=== PATIENT | female | born 1935 | race Caucasian/White ===

== ENCOUNTER 2016-06-10 17:22 | Inpatient (IN) | payer MEDICARE ==
[2016-06-10] MEDS ORDERED: NITROGLYCERIN 0.4 MG/TAB 25 TAB/BOTTLE SL PRN (19:11)
--- NOTE | 2016-06-10 19:11 | PDOC H&P ---
History of Present Illness Admission Date/PCP: 06/10/16 17:22 [facility] [place] Patient complains of: Cough, Fatigue, Fall History of Present Illness: SANCHO GARDUNO is a 81 year old female who presented to my office earlier today with reported worsening fatigue, coughing and more confused in the last couple of days. Caregiver reported episode of fall at home. There is reported productive cough, with description of sputum as green yellow, fever and chills. There is associated shortness of breath, wheezing, urinary frequency and incontinence. There is associated poor appetite and oral intake. No significant abdominal pain or diarrhea. Caregiver reported recent change in patient's pain management medication by specialist from Morphine sulfate to Williams. Patient's vitals in the office was reported temperature at 103.1F oxygen saturation was between 85 and 91% on room air at rest. Past Medical History Cardiac Medical History: Reports: Atrial Fibrillation, Hypertension Pulmonary Medical History: Reports: Chronic Obstructive Pulmonary Disease (COPD) , Pneumonia, Tuberculosis Endocrine Medical History: Reports: Diabetes Mellitus Type 2 Psychiatric Medical History: Reports: Dementia - From Parkinson's Denies: Depression Past Surgical History Past Surgical History: Reports: Section, Cholecystectomy, Hysterectomy , Orthopedic Surgery - Bilateral hip replacements, Tonsillectomy Social History Smoking Status: Never Smoker Frequency of Alcohol Use: None Hx Recreational Drug Use: No Hx Prescription Drug Abuse: No - Advance Directive Resuscitation Status: Full Code Family History Family History: Reviewed & Not Pertinent Parental Family History Reviewed: Yes Children Family History Reviewed: Yes Sibling(s) Family History Reviewed.: Yes Medication/Allergy Home Medications: Albuterol Sulfate [Proair HFA] 1 puff IH TIDP PRN 06/10/16 Carbidopa/Levodopa [Sinemet 25-100 mg Tablet] 1 each PO Q12 06/10/16 Furosemide [Lasix 20 mg Tablet] 20 mg PO DAILY 06/10/16 Gabapentin [Neurontin] 800 mg PO Q6 06/10/16 Glimepiride 0.5 mg PO DAILY 06/10/16 Hydrocodone/Acetaminophen [Williams 10-325 mg Tablet] 1 tab PO PRN PRN 06/10/16 Lamotrigine [Lamictal] 100 mg PO Q12 06/10/16 Levothyroxine Sodium [Synthroid 0.075 mg Tablet] 0.075 mg PO DAILY 06/10/16 Loratadine [Claritin 10 mg Tablet] 10 mg PO DAILY 06/10/16 Metoprolol Tartrate [Lopressor 25 mg Tablet] 12.5 mg PO Q12 06/10/16 Nitroglycerin [Nitrostat] 0.4 mg SL Q5MP PRN 06/10/16 Allergies/Adverse Reactions: codeine Allergy (Verified 04/14/16 20:11) digoxin Allergy (Verified 04/14/16 20:11) metaxalone [From Skelaxin] Allergy (Verified 04/14/16 20:11) metoclopramide [From Reglan] Allergy (Verified 04/14/16 20:11) Review of Systems All systems: reviewed and no additional remarkable complaints except as stated Physical Exam General appearance: PRESENT: cooperative, disheveled Head exam: PRESENT: atraumatic, normocephalic Eye exam: PRESENT: conjunctiva pink, EOMI, PERRLA Ear exam: PRESENT: normal external ear exam Mouth exam: PRESENT: dry mucosa. ABSENT: laceration, moist, neck supple, tongue midline, other Teeth exam: PRESENT: poor dentation - lower lung zone bilaterally Throat exam: ABSENT: post pharyngeal erythema, tonsillar erythema, tonsillar exudate, tonsillogmegaly, other Neck exam: PRESENT: full ROM. ABSENT: carotid bruit, JVD, lymphadenopathy, thyromegaly Respiratory exam: PRESENT: decreased breath sounds. ABSENT: accessory muscle use, chest wall tenderness, clear to auscultation иван, crackles, prolonged expiratory phas, rales, retraction, rhonchi, stridor, symmetrical, tachypnea, unlabored, wheezes, other Cardiovascular exam: PRESENT: RRR. ABSENT: diastolic murmur, rubs, systolic murmur Vascular exam: PRESENT: normal capillary refill. ABSENT: pallor, other GI/Abdominal exam: PRESENT: normal bowel sounds, soft. ABSENT: distended, guarding, mass, organolmegaly, rebound, tenderness Rectal exam: PRESENT: deferred Extremities exam: PRESENT: full ROM Musculoskeletal exam: PRESENT: other - patient was wheelchair bound in the office Neurological exam: PRESENT: altered - demonstrable intermittent confusion in her responses., awake, abnormal gait, CN II-XII grossly intact, motor sensory deficit Psychiatric exam: PRESENT: appropriate affect Skin exam: PRESENT: dry, intact, warm. ABSENT: cyanosis, rash Assessment & Plan - Diagnosis (1) Probable sepsis Is this a current diagnosis for this admission?: YesPlan: See admitting physician orders. (2) Parkinson disease Is this a current diagnosis for this admission?: YesPlan: See admitting physician orders (3) Chronic atrial fibrillation Is this a current diagnosis for this admission?: YesPlan: See admitting physician orders (4) COPD (chronic obstructive pulmonary disease) Is this a current diagnosis for this admission?: YesPlan: See admitting physician orders (5) Parkinson's disease dementia Qualifiers: Dementia behavioral disturbance: without behavioral disturbance Qualified Code(s): G20 - Parkinson's disease; F02.80 - Dementia in other diseases classified elsewhere without behavioral disturbance Is this a current diagnosis for this admission?: YesPlan: See admitting physician orders (6) Hypothyroidism (acquired) Is this a current diagnosis for this admission?: YesPlan: See admitting physician orders (7) Type 2 diabetes mellitus with hyperglycemia Is this a current diagnosis for this admission?: YesPlan: See admitting physician orders (9) GERD (gastroesophageal reflux disease) Qualifiers: Esophagitis presence: esophagitis presence not specified Qualified Code(s): K21.9 - Gastro-esophageal reflux disease without esophagitis Is this a current diagnosis for this admission?: YesPlan: See admitting physician orders - Time Time Spent: 50 to 70 Minutes Medications reviewed and adjusted accordingly: Yes Anticipated discharge: Home with Homehealth - Inpatient Certification Medical Necessity: Need Close Monitoring Due to Risk of Patient Decompensation, Need For IV Fluids, Need For Continuous Telemetry Monitoring, Need for Nebulizer Therapy and Monitoring of Response, Need for Pain Control, Need for IV Antibiotics, Risk of Complication if Not Cared For in Hospital Post Hospital Care: D/C Marine Equipment Sales Engineer Documentation - Plan Summary Plan Summary: See admitting physician orders
[2016-06-10 19:12] LABS: ABSOLUTE LYMPHOCYTES (AUTO) 0.6 10^3/uL (0.5-4.7); ABSOLUTE MONOCYTES (AUTO) 0.5 10^3/uL (0.1-1.4); ABSOLUTE NEUT (AUTO) 6.4 10^3/uL (1.7-8.2); BASOPHILS % (AUTO) 0.3 % (0-2); EOSINOPHILS % (AUTO) 0.1 % (0-6); HEMATOCRIT 36.1 % (36.0-47.0); HEMOGLOBIN 11.8 g/dL (12.0-15.5); HGB HCT DIFFERENCE -0.7; LYMPHOCYTES % (AUTO) 8.6 % (13-45); MEAN CORPUSCULAR HEMOGLOBIN 29.3 pg (27.0-33.4); MEAN CORPUSCULAR HGB CONC 32.5 g/dL (32.0-36.0); MEAN CORPUSCULAR VOLUME 90 fl (80-97); MONOCYTES % (AUTO) 6.7 % (3-13); RED BLOOD COUNT 4.01 10^6/uL (3.72-5.28); RED CELL DISTRIBUTION WIDTH 13.6 % (11.5-14.0); SEGMENTED NEUTROPHILS % (AUTO) 84.3 % (42-78); WHITE BLOOD COUNT 7.6 10^3/uL (4.0-10.5)
[2016-06-10 19:30] LABS: ALANINE AMINOTRANSFERASE 18 U/L (9-52); ALBUMIN 3.2 g/dL (3.5-5.0); ALKALINE PHOSPHATASE 106 U/L (38-126); ANION GAP 11 (5-19); ASPARTATE AMINO TRANSFERASE 22 U/L (14-36); BILIRUBIN,TOTAL 0.2 mg/dL (0.2-1.3); BLOOD UREA NITROGEN 26 mg/dL (7-20); CALCIUM 8.5 mg/dL (8.4-10.2); CARBON DIOXIDE 28 mmol/L (22-30); CHLORIDE 106 mmol/L (98-107); GLUCOSE 132 mg/dL (75-110); POTASSIUM 3.4 mmol/L (3.6-5.0); SODIUM 145.2 mmol/L (137-145); TOTAL PROTEIN 5.5 g/dL (6.3-8.2)
[2016-06-10] MEDS: NORMAL SALINE 1000 ML 1,000 ML IV PRN (19:37)
[2016-06-10] MEDS ORDERED: ALBUTEROL SULFATE HFA (90 MCG/PUFF) 8 GM MDI (1 MDI/ER DISP) IH PRN (21:00)
[2016-06-10] MEDS: CARBIDOPA/LEVODOPA 25-100 MG TABLET PO SCH (22:00)
[2016-06-10] MEDS ORDERED: LEVOFLOXACIN 500 MG/D5W RTU 500 MG/100 ML RTUPB IV SCH (22:00)
[2016-06-10] MEDS: METOPROLOL TARTRATE 25 MG TABLET PO SCH (22:01)
[2016-06-10] MEDS: LAMOTRIGINE 100 MG TABLET PO SCH (22:01)
[2016-06-11] MEDS: CEFEPIME HCL 2 GM in DEXTROSE 5%-WATER 50 ML IV SCH ×3 (00:03→23:45)
[2016-06-11] MEDS: METOPROLOL TARTRATE 25 MG TABLET PO SCH ×2 (09:04→21:34)
[2016-06-11] MEDS: LAMOTRIGINE 100 MG TABLET PO SCH ×2 (09:05→21:34)
[2016-06-11] MEDS: ENOXAPARIN SODIUM INJ 40 MG/0.4 ML DISP.SYRIN SUBCUT SCH (09:05)
[2016-06-11] MEDS: LEVOTHYROXINE SODIUM 0.075 MG TABLET PO SCH (09:05)
[2016-06-11] MEDS: LORATADINE 10 MG TABLET PO SCH (09:05)
[2016-06-11] MEDS: LANSOPRAZOLE 30 MG TAB.RAP.DR PO SCH (09:05)
[2016-06-11] MEDS: CARBIDOPA/LEVODOPA 25-100 MG TABLET PO SCH ×2 (09:05→21:34)
[2016-06-11] MEDS: GUAIFENESIN 600 MG TABLET.SA PO SCH ×2 (10:23→21:33)
[2016-06-11] MEDS: GABAPENTIN 300 MG CAPSULE PO SCH ×2 (13:21→21:33)
--- NOTE | 2016-06-11 15:08 | Physician Advisory Note ---
Physician Advisor ProgressNote .: Pursuant to the plan for [facility], I have reviewed the medical record for this patient. Physician Advisor Statement: Nice documentation of type of Afib. Possible documentation opportunities if attending agrees: 1. "possible sepsis due to , present on adm, with high fever, tachycardia , AMS, thrombocytopenia, hypoxemia..." [Pneumonia? Ac bronchitis?] - She meets Sepsis-2 criteria for dx sepsis; for Sepsis-3 criteria, she meets by thrombocytopenia & hypoxemia if both are attributed to sepsis as cause. 2. "possible LLL Pneumonia possibly due to gram-negatives (given COPD, ...), with acute hypoxemia" [or anaerobes given poor dentition?] - Also could have had 'Acute Hypoxemic Resp Failure' if she had had increased work of breathing initially with her hypoxemia. But in this case, hypoxemia could possibly be related to sepsis instead. 3. "acute hypernatremia, likely due to intravascular volume depletion" 4. Medical necessity: please document explicitly why this pt is still too sick to go home on continued abx today. 5. "underweight with protein-calorie malnutrition [state mild, mod, or severe] with BMI 19.3, alb 3.2, ____[?wt loss, ?appetite loss x >2 days?, ]" [if possible, give specifics on intake, wt loss, loss of SQ fat & muscle mass, diminished hand revenue settlements administrator strength, & clinical importance such as (A) nutritional assessment ordered, (B) modified diet or supplements ordered, (C) additional labs ordered, (D) prolonged wound healing time, (E) delayed infxn clearance] - - - Auditors are strict about the dx of malnutrition - has to be explicitly spelled out. As always, if concerned about any unstable VS or abnormal labs, please comment on them & note what doing about them, & please document each day the potential clinical problems you are concerned could occur if pt not kept in hospital for tx at this time. Discussion: 81yo female w/ chronic co-morbidities including COPD, TB, PNA, Afib, HTN, DM-2, dementia due to PD - presented 2/6 AM from office with increasing fatigue, coughing, increased confusion for appx 2 days, with a fall at home, cough productive of green- yellow sputum, Fever, chills, SOB/wheezing, urinary freuent incontinunce, poor appetitie & po intake, recent change in pain med from morphine to [place]. (+) Temp 103.1, O2 sat 85-91% on RA at rest. Discheveled, dry mucosae, poor dentition, decreased breath sounds, "demonstrable intermittent confusion in her responses". HR 78 -> 110s-120s, RR 20, BP 132/43, WBC 7.6, Hgb 11.8, plt 112, Na 145.2, K 3.4, BUN 26, Cr 1.10, alb 3.2, BMI 19.3. Attending ordered NS @75, po Levaquin, IV Cefepime, prn Albuterol, scheduled Guaifenesin. Status: Elderly pt with COPD, DM-2, possible pneumonia, possible sepsis, possible malnutrition, hypernatremia/prerenal azotemia, hypokalemia, already in hospital x 1MN at time of review. Still with HR as high as 117 at MN & 122 this AM. Co= morbidities with high risk morbidity/mortality, & pt not hemodynamically stable. Continued tx in inpatient hospital setting medically reasonable & necessary to protect pt's health, safety, & medical condition. Appropriate for Inpt status. Thanks for your help with documentation accuracy/specificity improvement! Blanca Kenyon MD [facility] Physician Advisor, Fellow of Hospital Medicine
--- NOTE | 2016-06-11 17:16 | PDOC PROGRESS REPORT ---
Subjective Progress Note for:: 06/11/16 Subjective:: Patient continue to report chest congestion and ineffective expectoration. No chest pain. Generalized weakness. Concern for possible fluid overload led to holding of IV fluid overnight. Remain on supplemental oxygen due to reported hypoxemic episodes off supplementation. No nausea or vomiting but p.o intake remain a challenge. Remain on IV antibiotic coverage. Her chronic pain is fairly managed on current regimen. Physical Exam Vital Signs: Temp Pulse Resp BP Pulse Ox 98.8 F 70 18 137/58 H 100 06/11/16 16:10 06/11/16 16:10 06/11/16 16:10 06/11/16 16:10 06/11/16 16:10 Intake & Output 06/10/16 06/11/16 06/12/16 06:59 06:59 06:59 Intake Total 900 578 Output Total 500 Balance 400 578 Weight 57.7 kg General appearance: PRESENT: no acute distress, well-developed, well-nourished Head exam: PRESENT: atraumatic, normocephalic Eye exam: PRESENT: conjunctiva pink, EOMI, PERRLA. ABSENT: scleral icterus Throat exam: ABSENT: post pharyngeal erythema, tonsillar erythema, tonsillar exudate, tonsillogmegaly, other Neck exam: PRESENT: full ROM. ABSENT: carotid bruit, JVD, lymphadenopathy, thyromegaly Respiratory exam: PRESENT: crackles - lung bases, decreased breath sounds - bilaterally at lung bases Cardiovascular exam: PRESENT: RRR. ABSENT: diastolic murmur, rubs, systolic murmur GI/Abdominal exam: PRESENT: normal bowel sounds, soft. ABSENT: distended, guarding, mass, organolmegaly, rebound, tenderness Extremities exam: PRESENT: full ROM Musculoskeletal exam: PRESENT: full ROM. ABSENT: ambulatory - bedbound presently, deformity, dislocation, normal inspection, tenderness, other Neurological exam: PRESENT: alert, awake, oriented to person, oriented to place , oriented to time, oriented to situation, CN II-XII grossly intact. ABSENT: motor sensory deficit Psychiatric exam: PRESENT: depressed Skin exam: PRESENT: dry, intact, warm. ABSENT: cyanosis, rash Results Laboratory Results: 06/10/16 19:00 06/10/16 19:00 06/10/16 06/10/16 19:00 19:00 WBC 7.6 RBC 4.01 Hgb 11.8 L Hct 36.1 MCV 90 MCH 29.3 MCHC 32.5 RDW 13.6 Plt Count 112 L Seg Neutrophils % 84.3 H Lymphocytes % 8.6 L Monocytes % 6.7 Eosinophils % 0.1 Basophils % 0.3 Absolute Neutrophils 6.4 Absolute Lymphocytes 0.6 Absolute Monocytes 0.5 Absolute Eosinophils 0.0 Absolute Basophils 0.0 Sodium 145.2 H Potassium 3.4 L Chloride 106 Carbon Dioxide 28 Anion Gap 11 BUN 26 H Creatinine 1.10 Est GFR ( Amer) 58 L Est GFR (Non-Af Amer) 48 L Glucose 132 H Calcium 8.5 Total Bilirubin 0.2 AST 22 ALT 18 Alkaline Phosphatase 106 Total Protein 5.5 L Albumin 3.2 L Impressions: Chest X-Ray 06/10/16 00:00 IMPRESSION: Small left lower lobar atelectasis/pneumonia. Assessment & Plan - Diagnosis (1) Probable sepsis Is this a current diagnosis for this admission?: Yes (2) Parkinson disease Is this a current diagnosis for this admission?: Yes (3) Chronic atrial fibrillation Is this a current diagnosis for this admission?: Yes (4) COPD (chronic obstructive pulmonary disease) Is this a current diagnosis for this admission?: Yes (5) Parkinson's disease dementia Qualifiers: Dementia behavioral disturbance: without behavioral disturbance Qualified Code(s): G20 - Parkinson's disease; F02.81 - Dementia in other diseases classified elsewhere with behavioral disturbance Is this a current diagnosis for this admission?: Yes (6) Hypothyroidism (acquired) Is this a current diagnosis for this admission?: Yes (7) Type 2 diabetes mellitus with hyperglycemia Is this a current diagnosis for this admission?: Yes (9) GERD (gastroesophageal reflux disease) Qualifiers: Esophagitis presence: esophagitis presence not specified Qualified Code(s): K21.9 - Gastro-esophageal reflux disease without esophagitis Is this a current diagnosis for this admission?: Yes (10) Left lower lobe pneumonia Is this a current diagnosis for this admission?: YesPlan: Continue on IV Cefepime and oral Levofloxacin coverage. Start on bedside incentive spirometry. (11) Hypokalemia Is this a current diagnosis for this admission?: YesPlan: Patient will receive potassium replacement. I will request for serum mag level for possible correction. (12) Acute kidney injury Is this a current diagnosis for this admission?: YesPlan: Continue gentle IV hydration with appropriate electrolyte replacement. - Time Time Spent with patient: 25-34 minutes Medications reviewed and adjusted accordingly: Yes Anticipated discharge: Home with Homehealth - Inpatient Certification Based on my medical assessment, after consideration of the patient's comorbidities, presenting symptoms, or acuity I expect that the services needed warrant INPATIENT care.: Yes I certify that my determination is in accordance with my understanding of Medicare's requirements for reasonable and necessary INPATIENT services [42 CFR 412.3e].: Yes Medical Necessity: Need Close Monitoring Due to Risk of Patient Decompensation, Need For IV Fluids, Need For Continuous Telemetry Monitoring, Need for IV Antibiotics, Risk of Complication if Not Cared For in Hospital Post Hospital Care: D/C Merchandising Execution Manager Documentation - Plan Summary Plan Summary: See attending physician orders.
[2016-06-11] MEDS: POTASSI CL 20 MEQ/50 ML RIDER 50 ML IV SCH ×2 (17:43→21:27)
[2016-06-11 18:55] LABS: ABSOLUTE LYMPHOCYTES (AUTO) 1.2 10^3/uL (0.5-4.7); ABSOLUTE MONOCYTES (AUTO) 0.7 10^3/uL (0.1-1.4); ABSOLUTE NEUT (AUTO) 8.3 10^3/uL (1.7-8.2); BASOPHILS % (AUTO) 0.1 % (0-2); HEMATOCRIT 32.9 % (36.0-47.0); HEMOGLOBIN 10.9 g/dL (12.0-15.5); HGB HCT DIFFERENCE -0.2; LYMPHOCYTES % (AUTO) 11.8 % (13-45); MEAN CORPUSCULAR HEMOGLOBIN 29.6 pg (27.0-33.4); MEAN CORPUSCULAR HGB CONC 33.1 g/dL (32.0-36.0); MEAN CORPUSCULAR VOLUME 89 fl (80-97); MONOCYTES % (AUTO) 6.5 % (3-13); RED BLOOD COUNT 3.69 10^6/uL (3.72-5.28); RED CELL DISTRIBUTION WIDTH 13.5 % (11.5-14.0); SEGMENTED NEUTROPHILS % (AUTO) 81.6 % (42-78); WHITE BLOOD COUNT 10.2 10^3/uL (4.0-10.5)
[2016-06-11 19:14] LABS: ANION GAP 10 (5-19); BLOOD UREA NITROGEN 21 mg/dL (7-20); CALCIUM 8.4 mg/dL (8.4-10.2); CARBON DIOXIDE 26 mmol/L (22-30); CHLORIDE 107 mmol/L (98-107); CREATININE RESULT 0.87 mg/dL (0.52-1.25); GLUCOSE 128 mg/dL (75-110); POTASSIUM 3.5 mmol/L (3.6-5.0)
[2016-06-11] MEDS: LEVOFLOXACIN 250 MG TABLET PO SCH (21:34)
[2016-06-11] MEDS: NORMAL SALINE 1000 ML 1,000 ML IV PRN (21:35)
[2016-06-12 05:51] LABS: APPEARANCE,URINE CLEAR; BILIRUBIN,URINE NEGATIVE (NEGATIVE); GLUCOSE, URINE NEGATIVE (NEGATIVE); KETONES,URINE TRACE mg/dL (NEGATIVE); LEUKOCYTE ESTERASE,URINE NEGATIVE (NEGATIVE); NITRITE,URINE NEGATIVE (NEGATIVE); PROTEIN,URINE 30 mg/dL (NEGATIVE); URINE SPECIFIC GRAVITY 1.019; UROBILINOGEN,URINE NEGATIVE mg/dL (<2.0)
[2016-06-12] MEDS: NORMAL SALINE 1000 ML 1,000 ML IV PRN ×2 (05:59→17:14)
[2016-06-12] MEDS: GABAPENTIN 300 MG CAPSULE PO SCH ×3 (06:00→21:59)
[2016-06-12] MEDS: ACETAMINOPHEN 325 MG TABLET PO PRN (06:10)
[2016-06-12] MEDS ORDERED: DEXTROSE 40% GEL 15 GM TUBE PO PRN ×2 (07:58)
[2016-06-12] MEDS ORDERED: INSULIN LISPRO 100 UNIT/ML 3 ML VIAL SUBCUT PRN (07:58)
[2016-06-12] MEDS ORDERED: GLUCAGON,HUMAN RECOMB 1 MG INJ IM PRN (07:58)
[2016-06-12] MEDS ORDERED: DEXTROSE 50%-WATER 25 GM/50 ML DISP.SYRIN IV PRN ×2 (07:58)
[2016-06-12] MEDS ORDERED: POTASSIUM CHLORIDE 10 MEQ TABLET.SA PO SCH (08:00)
--- NOTE | 2016-06-12 08:13 | PDOC PROGRESS REPORT ---
Subjective Progress Note for:: 06/12/16 Subjective:: Patient reported some improvement in her cough and chest congestion. No chest pain. No nausea, vomiting, or abdominal pain. Her oral intake is improving. Remain on IV antibiotic coverage. Her chronic pain is fairly managed on current regimen. Physical Exam Vital Signs: Temp Pulse Resp BP Pulse Ox 98.3 F 67 16 155/54 H 99 06/12/16 07:19 06/12/16 07:19 06/12/16 07:19 06/12/16 07:19 06/12/16 07:19 Intake & Output 06/11/16 06/12/16 06/13/16 06:59 06:59 06:59 Intake Total 900 2073 Output Total 500 Balance 400 2073 Weight 57.7 kg 67.5 kg Physical Exam: General appearance: PRESENT: no acute distress, well-developed, well-nourished Head exam: PRESENT: atraumatic, normocephalic Eye exam: PRESENT: conjunctiva pink, EOMI, PERRLA. ABSENT: scleral icterus Throat exam: ABSENT: post pharyngeal erythema, tonsillar erythema, tonsillar exudate, tonsillogmegaly, other Neck exam: PRESENT: full ROM. ABSENT: carotid bruit, JVD, lymphadenopathy, thyromegaly Respiratory exam: PRESENT: crackles - lung bases, decreased breath sounds - bilaterally at lung bases Cardiovascular exam: PRESENT: RRR. ABSENT: diastolic murmur, rubs, systolic murmur GI/Abdominal exam: PRESENT: normal bowel sounds, soft. ABSENT: distended, guarding, mass, organolmegaly, rebound, tenderness Extremities exam: PRESENT: full ROM Musculoskeletal exam: PRESENT: full ROM. ABSENT: ambulatory - bedbound presently, deformity, dislocation, normal inspection, tenderness, other Neurological exam: PRESENT: alert, awake, oriented to person, oriented to place , oriented to time, oriented to situation, CN II-XII grossly intact. ABSENT: motor sensory deficit Psychiatric exam: PRESENT: depressed Skin exam: PRESENT: dry, intact, warm. ABSENT: cyanosis, rash Results Laboratory Results: 06/11/16 18:40 06/11/16 18:40 06/11/16 06/11/16 06/11/16 18:40 18:40 18:40 WBC 10.2 RBC 3.69 L Hgb 10.9 L Hct 32.9 L MCV 89 MCH 29.6 MCHC 33.1 RDW 13.5 Plt Count 104 L Seg Neutrophils % 81.6 H Lymphocytes % 11.8 L Monocytes % 6.5 Eosinophils % 0.0 Basophils % 0.1 Absolute Neutrophils 8.3 H Absolute Lymphocytes 1.2 Absolute Monocytes 0.7 Absolute Eosinophils 0.0 Absolute Basophils 0.0 Sodium 143.0 Potassium 3.5 L Chloride 107 Carbon Dioxide 26 Anion Gap 10 BUN 21 H Creatinine 0.87 Est GFR ( Amer) > 60 Est GFR (Non-Af Amer) > 60 Glucose 128 H Calcium 8.4 Magnesium 2.1 Urine Color Urine Appearance Urine pH Ur Specific [place] Urine Protein Urine Glucose (UA) Urine Ketones Urine Blood Urine Nitrite Ur Leukocyte Esterase Urine WBC (Auto) 06/12/16 05:00 WBC RBC Hgb Hct MCV MCH MCHC RDW Plt Count Seg Neutrophils % Lymphocytes % Monocytes % Eosinophils % Basophils % Absolute Neutrophils Absolute Lymphocytes Absolute Monocytes Absolute Eosinophils Absolute Basophils Sodium Potassium Chloride Carbon Dioxide Anion Gap BUN Creatinine Est GFR ( Amer) Est GFR (Non-Af Amer) Glucose Calcium Magnesium Urine Color YELLOW Urine Appearance CLEAR Urine pH 6.0 Ur Specific [place] 1.019 Urine Protein 30 H Urine Glucose (UA) NEGATIVE Urine Ketones TRACE H Urine Blood NEGATIVE Urine Nitrite NEGATIVE Ur Leukocyte Esterase NEGATIVE Urine WBC (Auto) 0 Impressions: Chest X-Ray 06/10/16 00:00 IMPRESSION: Small left lower lobar atelectasis/pneumonia. Assessment & Plan - Diagnosis (1) Probable sepsis Is this a current diagnosis for this admission?: YesPlan: See attending physician orders. (2) Parkinson disease Is this a current diagnosis for this admission?: Yes (3) Chronic atrial fibrillation Is this a current diagnosis for this admission?: YesPlan: See attending physician orders (4) COPD (chronic obstructive pulmonary disease) Is this a current diagnosis for this admission?: Yes (5) Parkinson's disease dementia Qualifiers: Dementia behavioral disturbance: without behavioral disturbance Qualified Code(s): G20 - Parkinson's disease; F02.81 - Dementia in other diseases classified elsewhere with behavioral disturbance Is this a current diagnosis for this admission?: Yes (6) Hypothyroidism (acquired) Is this a current diagnosis for this admission?: YesPlan: See attending physician orders (7) Type 2 diabetes mellitus with hyperglycemia Is this a current diagnosis for this admission?: YesPlan: See attending physician orders (9) GERD (gastroesophageal reflux disease) Qualifiers: Esophagitis presence: esophagitis presence not specified Qualified Code(s): K21.9 - Gastro-esophageal reflux disease without esophagitis Is this a current diagnosis for this admission?: Yes (10) Left lower lobe pneumonia Is this a current diagnosis for this admission?: YesPlan: Continue on IV Cefepime and oral Levofloxacin coverage. Encouraged usage of bedside incentive spirometer. (11) Hypokalemia Is this a current diagnosis for this admission?: YesPlan: Patient will receive potassium replacement if her hypokalemia persist. (12) Acute kidney injury Is this a current diagnosis for this admission?: YesPlan: Continue gentle IV hydration with appropriate electrolyte replacement. Follow up on pending AM lab results. (13) HTN (hypertension) Qualifiers: Hypertension type: essential hypertension Qualified Code(s): I10 - Essential (primary) hypertension Is this a current diagnosis for this admission?: YesPlan: Start on Ramipril 2.5 mg po daily. I will continue to hold Furosemide usage for now. - Time Time Spent with patient: 25-34 minutes Medications reviewed and adjusted accordingly: Yes Within: Other - Inpatient Certification Medical Necessity: Need Close Monitoring Due to Risk of Patient Decompensation, Need For Continuous Telemetry Monitoring, Need for IV Antibiotics, Risk of Complication if Not Cared For in Hospital Post Hospital Care: D/C Packer Denture Documentation - Plan Summary Plan Summary: see attending physician orders.
[2016-06-12] MEDS: HYDROCODONE/ACETAMINOPHEN 5-325 MG TABLET PO PRN ×3 (08:37→22:06)
[2016-06-12 08:42] LABS: HEMATOCRIT 33.3 % (36.0-47.0); HEMOGLOBIN 10.8 g/dL (12.0-15.5); HGB HCT DIFFERENCE -0.9; MEAN CORPUSCULAR HEMOGLOBIN 29.3 pg (27.0-33.4); MEAN CORPUSCULAR HGB CONC 32.6 g/dL (32.0-36.0); MEAN CORPUSCULAR VOLUME 90 fl (80-97); RED CELL DISTRIBUTION WIDTH 13.2 % (11.5-14.0); WHITE BLOOD COUNT 8.9 10^3/uL (4.0-10.5)
[2016-06-12] MEDS: ASPIRIN 81 MG TABLET, CHEWABLE PO SCH (09:21)
[2016-06-12] MEDS: CARBIDOPA/LEVODOPA 25-100 MG TABLET PO SCH ×2 (09:22→22:02)
[2016-06-12] MEDS: GUAIFENESIN 600 MG TABLET.SA PO SCH ×2 (09:22→22:01)
[2016-06-12] MEDS: LANSOPRAZOLE 30 MG TAB.RAP.DR PO SCH (09:23)
[2016-06-12] MEDS: LAMOTRIGINE 100 MG TABLET PO SCH ×2 (09:23→22:01)
[2016-06-12] MEDS: LORATADINE 10 MG TABLET PO SCH (09:24)
[2016-06-12] MEDS: LEVOTHYROXINE SODIUM 0.075 MG TABLET PO SCH (09:24)
[2016-06-12] MEDS: METOPROLOL TARTRATE 25 MG TABLET PO SCH ×2 (09:44→22:01)
[2016-06-12] MEDS: ENOXAPARIN SODIUM INJ 40 MG/0.4 ML DISP.SYRIN SUBCUT SCH (09:49)
[2016-06-12] MEDS: RAMIPRIL 2.5 MG CAPSULE PO SCH (09:58)
[2016-06-12] MEDS: CEFEPIME HCL 2 GM in DEXTROSE 5%-WATER 50 ML IV SCH ×2 (10:12→22:05)
[2016-06-12] MEDS: TOPIRAMATE 100 MG TABLET PO SCH (22:00)
[2016-06-12] MEDS: LEVOFLOXACIN 250 MG TABLET PO SCH (22:04)
[2016-06-13] MEDS: GABAPENTIN 300 MG CAPSULE PO SCH ×3 (05:49→21:31)
--- NOTE | 2016-06-13 09:04 | PDOC PROGRESS REPORT ---
Subjective Progress Note for:: 06/13/16 Subjective:: Patient reported persistent cough and difficulty with expectoration. There is associated chest congestion. No chest pain. No nausea, vomiting, or abdominal pain. Her oral intake is improving. Remain on IV antibiotic coverage. Physical Exam Vital Signs: Temp Pulse Resp BP Pulse Ox 98.3 F 62 14 163/55 H 98 06/13/16 07:12 06/13/16 07:12 06/13/16 07:12 06/13/16 07:12 06/13/16 07:12 Intake & Output 06/12/16 06/13/16 06/14/16 06:59 06:59 06:59 Intake Total 2073 2950 Output Total 600 Balance 2073 2350 Weight 67.5 kg 69.5 kg Physical Exam: General appearance: PRESENT: no acute distress, well-developed, well-nourished Head exam: PRESENT: atraumatic, normocephalic Eye exam: PRESENT: conjunctiva pink, EOMI, PERRLA. ABSENT: scleral icterus Throat exam: ABSENT: post pharyngeal erythema, tonsillar erythema, tonsillar exudate, tonsillogmegaly, other Neck exam: PRESENT: full ROM. ABSENT: carotid bruit, JVD, lymphadenopathy, thyromegaly Respiratory exam: PRESENT: crackles - lung bases, decreased breath sounds - bilaterally at lung bases Cardiovascular exam: PRESENT: RRR. ABSENT: diastolic murmur, rubs, systolic murmur GI/Abdominal exam: PRESENT: normal bowel sounds, soft. ABSENT: distended, guarding, mass, organolmegaly, rebound, tenderness Extremities exam: PRESENT: full ROM Musculoskeletal exam: PRESENT: full ROM. ABSENT: ambulatory - bedbound presently, deformity, dislocation, normal inspection, tenderness, other Neurological exam: PRESENT: alert, awake, oriented to person, oriented to place , oriented to time, oriented to situation, CN II-XII grossly intact. ABSENT: motor sensory deficit Psychiatric exam: PRESENT: depressed Skin exam: PRESENT: dry, intact, warm. ABSENT: cyanosis, rash Results Laboratory Results: 06/12/16 08:07 06/11/16 18:40 Impressions: Chest X-Ray 06/10/16 00:00 IMPRESSION: Small left lower lobar atelectasis/pneumonia. Assessment & Plan - Diagnosis (1) Probable sepsis Is this a current diagnosis for this admission?: YesPlan: Continue IV Cefepime and levofloxacin coverage. See attending physician orders. (2) Parkinson disease Is this a current diagnosis for this admission?: Yes (3) Chronic atrial fibrillation Is this a current diagnosis for this admission?: YesPlan: See attending physician orders (4) COPD (chronic obstructive pulmonary disease) Is this a current diagnosis for this admission?: YesPlan: See admitting physician orders (5) Parkinson's disease dementia Qualifiers: Dementia behavioral disturbance: without behavioral disturbance Qualified Code(s): G20 - Parkinson's disease; F02.81 - Dementia in other diseases classified elsewhere with behavioral disturbance Is this a current diagnosis for this admission?: Yes (6) Hypothyroidism (acquired) Is this a current diagnosis for this admission?: Yes (7) Type 2 diabetes mellitus with hyperglycemia Is this a current diagnosis for this admission?: YesPlan: See attending physician orders (9) GERD (gastroesophageal reflux disease) Qualifiers: Esophagitis presence: esophagitis presence not specified Qualified Code(s): K21.9 - Gastro-esophageal reflux disease without esophagitis Is this a current diagnosis for this admission?: Yes (10) Left lower lobe pneumonia Is this a current diagnosis for this admission?: YesPlan: Continue on IV Cefepime and oral Levofloxacin coverage. Encouraged usage of bedside incentive spirometer and Flutter device. D/C Mucinex. Start on Benzonatate 100 mg po tid. Obtain CBC. (11) Hypokalemia Is this a current diagnosis for this admission?: YesPlan: Patient will receive potassium replacement if her hypokalemia persist. (12) Acute kidney injury Is this a current diagnosis for this admission?: YesPlan: Continue gentle IV hydration with appropriate electrolyte replacement. Follow up on pending AM lab results. (13) HTN (hypertension) Qualifiers: Hypertension type: essential hypertension Qualified Code(s): I10 - Essential (primary) hypertension Is this a current diagnosis for this admission?: YesPlan: I will increase Ramipril to 5 mg po daily. Obtain BMP.
[2016-06-13] MEDS: ENOXAPARIN SODIUM INJ 40 MG/0.4 ML DISP.SYRIN SUBCUT SCH (10:14)
[2016-06-13] MEDS: LEVOTHYROXINE SODIUM 0.075 MG TABLET PO SCH (10:15)
[2016-06-13] MEDS: CARBIDOPA/LEVODOPA 25-100 MG TABLET PO SCH ×2 (10:15→21:30)
[2016-06-13] MEDS: ASPIRIN 81 MG TABLET, CHEWABLE PO SCH (10:15)
[2016-06-13] MEDS: LANSOPRAZOLE 30 MG TAB.RAP.DR PO SCH (10:15)
[2016-06-13] MEDS: CEFEPIME HCL 2 GM in DEXTROSE 5%-WATER 50 ML IV SCH ×2 (10:15→22:36)
[2016-06-13] MEDS: LORATADINE 10 MG TABLET PO SCH (10:15)
[2016-06-13] MEDS: METOPROLOL TARTRATE 25 MG TABLET PO SCH ×2 (10:15→21:32)
[2016-06-13 10:26] LABS: ABSOLUTE EOSINOPHILS # (AUTO) 0.1 10^3/uL (0.0-0.6); ABSOLUTE LYMPHOCYTES (AUTO) 0.9 10^3/uL (0.5-4.7); ABSOLUTE MONOCYTES (AUTO) 0.6 10^3/uL (0.1-1.4); ABSOLUTE NEUT (AUTO) 6.9 10^3/uL (1.7-8.2); BASOPHILS % (AUTO) 0.2 % (0-2); HEMATOCRIT 34.2 % (36.0-47.0); HEMOGLOBIN 11.4 g/dL (12.0-15.5); LYMPHOCYTES % (AUTO) 11.1 % (13-45); MEAN CORPUSCULAR HEMOGLOBIN 29.6 pg (27.0-33.4); MEAN CORPUSCULAR HGB CONC 33.3 g/dL (32.0-36.0); MEAN CORPUSCULAR VOLUME 89 fl (80-97); MONOCYTES % (AUTO) 6.8 % (3-13); RED BLOOD COUNT 3.85 10^6/uL (3.72-5.28); RED CELL DISTRIBUTION WIDTH 13.2 % (11.5-14.0); SEGMENTED NEUTROPHILS % (AUTO) 80.9 % (42-78); WHITE BLOOD COUNT 8.5 10^3/uL (4.0-10.5)
[2016-06-13] MEDS: RAMIPRIL 2.5 MG CAPSULE PO SCH (10:27)
[2016-06-13] MEDS: NORMAL SALINE 1000 ML 1,000 ML IV PRN ×2 (10:31→22:49)
[2016-06-13 10:45] LABS: BLOOD UREA NITROGEN 14 mg/dL (7-20); CALCIUM 8.9 mg/dL (8.4-10.2); CARBON DIOXIDE 22 mmol/L (22-30); CHLORIDE 110 mmol/L (98-107); CREATININE RESULT 0.74 mg/dL (0.52-1.25); GLUCOSE 112 mg/dL (75-110); POTASSIUM 3.8 mmol/L (3.6-5.0); SODIUM 143.1 mmol/L (137-145)
[2016-06-13 10:46] LABS: ALANINE AMINOTRANSFERASE 13 U/L (9-52); ALBUMIN 3.2 g/dL (3.5-5.0); ALKALINE PHOSPHATASE 110 U/L (38-126); ANION GAP 11 (5-19); ASPARTATE AMINO TRANSFERASE 18 U/L (14-36); BILIRUBIN,TOTAL 0.4 mg/dL (0.2-1.3); TOTAL PROTEIN 5.4 g/dL (6.3-8.2)
[2016-06-13] MEDS ORDERED: BENZONATATE 100 MG CAPSULE PO ONE (11:00)
[2016-06-13] MEDS: LAMOTRIGINE 100 MG TABLET PO SCH ×2 (14:14→21:30)
[2016-06-13] MEDS: ACETAMINOPHEN 325 MG TABLET PO PRN (14:20)
[2016-06-13] MEDS ORDERED: ALBUTEROL SULFATE HFA (90 MCG/PUFF) 200 PUFF/8.5 GM MDI IH PRN (17:00)
[2016-06-13] MEDS: TOPIRAMATE 100 MG TABLET PO SCH (21:30)
[2016-06-13] MEDS: BENZONATATE 100 MG CAPSULE PO SCH (21:30)
[2016-06-13] MEDS: LEVOFLOXACIN 250 MG TABLET PO SCH (21:31)
[2016-06-14] MEDS: ACETAMINOPHEN 325 MG TABLET PO PRN (04:40)
[2016-06-14] MEDS: GABAPENTIN 300 MG CAPSULE PO SCH ×3 (05:05→21:06)
[2016-06-14] MEDS: BENZONATATE 100 MG CAPSULE PO SCH ×3 (05:05→21:06)
--- NOTE | 2016-06-14 08:20 | PDOC PROGRESS REPORT ---
Subjective Progress Note for:: 06/14/16 Subjective:: Patient reported less coughing and chest congestion on current medication management. No chest pain. No nausea, vomiting, or abdominal pain. Her oral intake is improving. Remain on IV antibiotic coverage. Physical Exam Vital Signs: Temp Pulse Resp BP Pulse Ox 98.1 F 66 16 148/57 H 97 06/14/16 07:08 06/14/16 07:08 06/14/16 07:08 06/14/16 07:08 06/14/16 07:08 Intake & Output 06/13/16 06/14/16 06/15/16 06:59 06:59 06:59 Intake Total 2950 3127 Output Total 600 Balance 2350 3127 Weight 69.5 kg 69.6 kg Physical Exam: General appearance: PRESENT: no acute distress, well-developed, well-nourished Head exam: PRESENT: atraumatic, normocephalic Eye exam: PRESENT: conjunctiva pink, EOMI, PERRLA. ABSENT: scleral icterus Throat exam: ABSENT: post pharyngeal erythema, tonsillar erythema, tonsillar exudate, tonsillogmegaly, other Neck exam: PRESENT: full ROM. ABSENT: carotid bruit, JVD, lymphadenopathy, thyromegaly Respiratory exam: PRESENT: crackles - lung bases, decreased breath sounds - bilaterally at lung bases Cardiovascular exam: PRESENT: RRR. ABSENT: diastolic murmur, rubs, systolic murmur GI/Abdominal exam: PRESENT: normal bowel sounds, soft. ABSENT: distended, guarding, mass, organolmegaly, rebound, tenderness Extremities exam: PRESENT: full ROM Musculoskeletal exam: PRESENT: full ROM. ABSENT: ambulatory - bedbound presently, deformity, dislocation, normal inspection, tenderness, other Neurological exam: PRESENT: alert, awake, oriented to person, oriented to place , oriented to time, oriented to situation, CN II-XII grossly intact. ABSENT: motor sensory deficit Psychiatric exam: PRESENT: depressed Skin exam: PRESENT: dry, intact, warm. ABSENT: cyanosis, rash Results Laboratory Results: 06/13/16 09:55 06/13/16 09:55 06/13/16 06/13/16 09:55 09:55 WBC 8.5 RBC 3.85 Hgb 11.4 L Hct 34.2 L MCV 89 MCH 29.6 MCHC 33.3 RDW 13.2 Plt Count 132 L Seg Neutrophils % 80.9 H Lymphocytes % 11.1 L Monocytes % 6.8 Eosinophils % 1.0 Basophils % 0.2 Absolute Neutrophils 6.9 Absolute Lymphocytes 0.9 Absolute Monocytes 0.6 Absolute Eosinophils 0.1 Absolute Basophils 0.0 Sodium 143.1 Potassium 3.8 Chloride 110 H Carbon Dioxide 22 Anion Gap 11 BUN 14 Creatinine 0.74 Est GFR ( Amer) > 60 Est GFR (Non-Af Amer) > 60 Glucose 112 H Calcium 8.9 Total Bilirubin 0.4 AST 18 ALT 13 Alkaline Phosphatase 110 Total Protein 5.4 L Albumin 3.2 L Impressions: Chest X-Ray 06/10/16 00:00 IMPRESSION: Small left lower lobar atelectasis/pneumonia. Assessment & Plan - Diagnosis (1) Probable sepsis Is this a current diagnosis for this admission?: YesPlan: Continue IV Cefepime and levofloxacin coverage. See attending physician orders. (2) Parkinson disease Is this a current diagnosis for this admission?: Yes (3) Chronic atrial fibrillation Is this a current diagnosis for this admission?: Yes (4) COPD (chronic obstructive pulmonary disease) Is this a current diagnosis for this admission?: YesPlan: See attending physician orders (5) Parkinson's disease dementia Qualifiers: Dementia behavioral disturbance: without behavioral disturbance Qualified Code(s): G20 - Parkinson's disease; F02.81 - Dementia in other diseases classified elsewhere with behavioral disturbance Is this a current diagnosis for this admission?: Yes (6) Hypothyroidism (acquired) Is this a current diagnosis for this admission?: Yes (7) Type 2 diabetes mellitus with hyperglycemia Is this a current diagnosis for this admission?: Yes (9) GERD (gastroesophageal reflux disease) Qualifiers: Esophagitis presence: esophagitis presence not specified Qualified Code(s): K21.9 - Gastro-esophageal reflux disease without esophagitis Is this a current diagnosis for this admission?: Yes (10) Left lower lobe pneumonia Is this a current diagnosis for this admission?: YesPlan: Continue on IV Cefepime and oral Levofloxacin coverage. Encouraged usage of Flutter device and bedside incentive spirometer. (11) Hypokalemia Is this a current diagnosis for this admission?: YesPlan: Resolved. Continue on all current medication management. (12) Acute kidney injury Is this a current diagnosis for this admission?: YesPlan: Improved. Continue gentle IV hydration with appropriate electrolyte replacement. (13) HTN (hypertension) Qualifiers: Hypertension type: essential hypertension Qualified Code(s): I10 - Essential (primary) hypertension Is this a current diagnosis for this admission?: YesPlan: I will increase Ramipril to 5 mg po daily. - Time Time Spent with patient: 25-34 minutes Medications reviewed and adjusted accordingly: Yes Anticipated discharge: Home with Homehealth Within: Other - Inpatient Certification Based on my medical assessment, after consideration of the patient's comorbidities, presenting symptoms, or acuity I expect that the services needed warrant INPATIENT care.: Yes I certify that my determination is in accordance with my understanding of Medicare's requirements for reasonable and necessary INPATIENT services [42 CFR 412.3e].: Yes Medical Necessity: Need Close Monitoring Due to Risk of Patient Decompensation, Need For IV Fluids, Need for IV Antibiotics, Risk of Complication if Not Cared For in Hospital Post Hospital Care: D/C Anthropology And Archeology Instructor Documentation - Plan Summary Plan Summary: See attending physician orders.
[2016-06-14] MEDS: LORATADINE 10 MG TABLET PO SCH (09:04)
[2016-06-14] MEDS: CARBIDOPA/LEVODOPA 25-100 MG TABLET PO SCH ×2 (09:04→21:06)
[2016-06-14] MEDS: LEVOTHYROXINE SODIUM 0.075 MG TABLET PO SCH (09:04)
[2016-06-14] MEDS: LANSOPRAZOLE 30 MG TAB.RAP.DR PO SCH (09:04)
[2016-06-14] MEDS: ASPIRIN 81 MG TABLET, CHEWABLE PO SCH (09:04)
[2016-06-14] MEDS: METOPROLOL TARTRATE 25 MG TABLET PO SCH ×2 (09:04→21:06)
[2016-06-14] MEDS: LAMOTRIGINE 100 MG TABLET PO SCH ×2 (09:05→21:06)
[2016-06-14] MEDS: ENOXAPARIN SODIUM INJ 40 MG/0.4 ML DISP.SYRIN SUBCUT SCH (09:09)
[2016-06-14] MEDS: RAMIPRIL 5 MG CAPSULE PO SCH (10:21)
[2016-06-14] MEDS: CEFEPIME HCL 2 GM in DEXTROSE 5%-WATER 50 ML IV SCH ×2 (10:21→22:47)
[2016-06-14] MEDS: LEVOFLOXACIN 250 MG TABLET PO SCH (21:06)
[2016-06-14] MEDS: TOPIRAMATE 100 MG TABLET PO SCH (21:06)
[2016-06-15] MEDS: GABAPENTIN 300 MG CAPSULE PO SCH ×3 (05:05→21:30)
[2016-06-15] MEDS: BENZONATATE 100 MG CAPSULE PO SCH ×3 (05:05→21:30)
[2016-06-15] MEDS: ENOXAPARIN SODIUM INJ 40 MG/0.4 ML DISP.SYRIN SUBCUT SCH (09:08)
[2016-06-15] MEDS: METOPROLOL TARTRATE 25 MG TABLET PO SCH ×2 (09:09→21:30)
[2016-06-15] MEDS: LEVOTHYROXINE SODIUM 0.075 MG TABLET PO SCH (09:09)
[2016-06-15] MEDS: LORATADINE 10 MG TABLET PO SCH (09:09)
[2016-06-15] MEDS: ASPIRIN 81 MG TABLET, CHEWABLE PO SCH (09:09)
[2016-06-15] MEDS: CARBIDOPA/LEVODOPA 25-100 MG TABLET PO SCH ×2 (09:09→21:30)
[2016-06-15] MEDS: LANSOPRAZOLE 30 MG TAB.RAP.DR PO SCH (09:11)
[2016-06-15] MEDS: LAMOTRIGINE 100 MG TABLET PO SCH ×2 (10:33→21:30)
[2016-06-15] MEDS: CEFEPIME HCL 2 GM in DEXTROSE 5%-WATER 50 ML IV SCH ×2 (10:33→22:13)
[2016-06-15] MEDS: RAMIPRIL 5 MG CAPSULE PO SCH (10:33)
[2016-06-15] MEDS: ACETAMINOPHEN 325 MG TABLET PO PRN (10:34)
--- NOTE | 2016-06-15 11:36 | PDOC PROGRESS REPORT ---
Subjective Progress Note for:: 06/15/16 Subjective:: Patient reported improving chest congestion, coughing and expectoration on current medication management. More compliant with Flutter device usage. No chest pain. Her tachycardia-bradycardia rhythm probably related to her chronic atrial fibrillation. No nausea, vomiting, or abdominal pain. Her oral intake is improving. Remain on IV antibiotic coverage. Physical Exam Vital Signs: Temp Pulse Resp BP Pulse Ox 98.0 F 125 H 18 135/83 H 98 06/15/16 07:24 06/15/16 07:24 06/15/16 07:24 06/15/16 07:24 06/15/16 07:24 Intake & Output 06/14/16 06/15/16 06/16/16 06:59 06:59 06:59 Intake Total 3127 3740 Balance 3127 3740 Weight 69.6 kg 69.3 kg Physical Exam: General appearance: PRESENT: no acute distress, well-developed, well-nourished Head exam: PRESENT: atraumatic, normocephalic Eye exam: PRESENT: conjunctiva pink, EOMI, PERRLA. ABSENT: scleral icterus Throat exam: ABSENT: post pharyngeal erythema, tonsillar erythema, tonsillar exudate, tonsillogmegaly, other Neck exam: PRESENT: full ROM. ABSENT: carotid bruit, JVD, lymphadenopathy, thyromegaly Respiratory exam: PRESENT: crackles - lung bases, decreased breath sounds - bilaterally at lung bases Cardiovascular exam: PRESENT: Irregular. ABSENT: diastolic murmur, rubs, systolic murmur GI/Abdominal exam: PRESENT: normal bowel sounds, soft. ABSENT: distended, guarding, mass, organolmegaly, rebound, tenderness Extremities exam: PRESENT: full ROM Musculoskeletal exam: PRESENT: full ROM. ABSENT: ambulatory - bedbound presently, deformity, dislocation, normal inspection, tenderness, other Neurological exam: PRESENT: alert, awake, oriented to person, oriented to place , oriented to time, oriented to situation, CN II-XII grossly intact. ABSENT: motor sensory deficit Psychiatric exam: PRESENT: depressed Skin exam: PRESENT: dry, intact, warm. ABSENT: cyanosis, rash Results Laboratory Results: 06/13/16 09:55 06/13/16 09:55 Impressions: Chest X-Ray 06/10/16 00:00 IMPRESSION: Small left lower lobar atelectasis/pneumonia. Assessment & Plan - Diagnosis (1) Probable sepsis Is this a current diagnosis for this admission?: YesPlan: Continue IV Cefepime and levofloxacin coverage. See attending physician orders. No growth x 5 days. (2) Parkinson disease Is this a current diagnosis for this admission?: Yes (3) Chronic atrial fibrillation Is this a current diagnosis for this admission?: YesPlan: See attending physician orders. Maintain on same medication regime. Patient may need further rhythm evaluation in outpatient setting. (4) COPD (chronic obstructive pulmonary disease) Is this a current diagnosis for this admission?: YesPlan: See attending physician orders (5) Parkinson's disease dementia Qualifiers: Dementia behavioral disturbance: without behavioral disturbance Qualified Code(s): G20 - Parkinson's disease; F02.81 - Dementia in other diseases classified elsewhere with behavioral disturbance Is this a current diagnosis for this admission?: Yes (6) Hypothyroidism (acquired) Is this a current diagnosis for this admission?: Yes (7) Type 2 diabetes mellitus with hyperglycemia Is this a current diagnosis for this admission?: YesPlan: See attending physician orders (9) GERD (gastroesophageal reflux disease) Qualifiers: Esophagitis presence: esophagitis presence not specified Qualified Code(s): K21.9 - Gastro-esophageal reflux disease without esophagitis Is this a current diagnosis for this admission?: Yes (10) Left lower lobe pneumonia Is this a current diagnosis for this admission?: YesPlan: Continue on IV Cefepime and oral Levofloxacin coverage. Encouraged usage of Flutter device and bedside incentive spirometer. (11) Hypokalemia Is this a current diagnosis for this admission?: Yes (12) Acute kidney injury Is this a current diagnosis for this admission?: Yes (13) HTN (hypertension) Qualifiers: Hypertension type: essential hypertension Qualified Code(s): I10 - Essential (primary) hypertension Is this a current diagnosis for this admission?: YesPlan: Improving readings on current medication management. - Time Time Spent with patient: 25-34 minutes Medications reviewed and adjusted accordingly: Yes Anticipated discharge: Home with Homehealth - Inpatient Certification Based on my medical assessment, after consideration of the patient's comorbidities, presenting symptoms, or acuity I expect that the services needed warrant INPATIENT care.: Yes I certify that my determination is in accordance with my understanding of Medicare's requirements for reasonable and necessary INPATIENT services [42 CFR 412.3e].: Yes Medical Necessity: Need Close Monitoring Due to Risk of Patient Decompensation, Need For Continuous Telemetry Monitoring, Need for IV Antibiotics, Risk of Diagnosis Which Will Require Inpatient Eval/Care/Monitoring Post Hospital Care: D/C Change Manager Documentation - Plan Summary Plan Summary: See attending physician orders.
[2016-06-15] MEDS: NORMAL SALINE 1000 ML 1,000 ML IV PRN (15:54)
[2016-06-15] MEDS: TOPIRAMATE 100 MG TABLET PO SCH (21:29)
[2016-06-15] MEDS: LEVOFLOXACIN 250 MG TABLET PO SCH (21:30)
[2016-06-16] MEDS: GABAPENTIN 300 MG CAPSULE PO SCH ×3 (06:16→21:22)
[2016-06-16] MEDS: BENZONATATE 100 MG CAPSULE PO SCH ×3 (06:16→21:22)
[2016-06-16] MEDS: ENOXAPARIN SODIUM INJ 40 MG/0.4 ML DISP.SYRIN SUBCUT SCH (09:16)
[2016-06-16] MEDS: METOPROLOL TARTRATE 25 MG TABLET PO SCH ×2 (09:16→21:23)
[2016-06-16] MEDS: LORATADINE 10 MG TABLET PO SCH (09:18)
[2016-06-16] MEDS: LANSOPRAZOLE 30 MG TAB.RAP.DR PO SCH (09:18)
[2016-06-16] MEDS: LEVOTHYROXINE SODIUM 0.075 MG TABLET PO SCH (09:18)
[2016-06-16] MEDS: CARBIDOPA/LEVODOPA 25-100 MG TABLET PO SCH ×2 (09:18→21:22)
[2016-06-16] MEDS: ASPIRIN 81 MG TABLET, CHEWABLE PO SCH (09:18)
[2016-06-16] MEDS: LAMOTRIGINE 100 MG TABLET PO SCH ×2 (09:21→21:22)
[2016-06-16] MEDS: ACETAMINOPHEN 325 MG TABLET PO PRN (09:21)
[2016-06-16] MEDS: RAMIPRIL 5 MG CAPSULE PO SCH (09:21)
--- NOTE | 2016-06-16 10:08 | PDOC PROGRESS REPORT ---
Subjective Progress Note for:: 06/16/16 Subjective:: No chest pain or difficulty with breathing. Improving chest congestion, coughing and expectoration on current management. No nausea, vomiting, or abdominal pain. Her oral intake is improving with oral supplementation. Remain on IV antibiotic coverage. Physical Exam Vital Signs: Temp Pulse Resp BP Pulse Ox 97.3 F 117 H 16 163/92 H 98 06/16/16 07:28 06/16/16 07:28 06/16/16 07:28 06/16/16 07:28 06/16/16 07:28 Intake & Output 06/15/16 06/16/16 06/17/16 06:59 06:59 06:59 Intake Total 3740 4447 Balance 3740 4447 Weight 69.3 kg 67.1 kg Physical Exam: General appearance: PRESENT: no acute distress, well-developed, well-nourished Head exam: PRESENT: atraumatic, normocephalic Eye exam: PRESENT: conjunctiva pink, EOMI, PERRLA. ABSENT: scleral icterus Throat exam: ABSENT: post pharyngeal erythema, tonsillar erythema, tonsillar exudate, tonsillogmegaly, other Neck exam: PRESENT: full ROM. ABSENT: carotid bruit, JVD, lymphadenopathy, thyromegaly Respiratory exam: PRESENT: crackles - lung bases, decreased breath sounds - bilaterally at lung bases Cardiovascular exam: PRESENT: Irregular. ABSENT: diastolic murmur, rubs, systolic murmur GI/Abdominal exam: PRESENT: normal bowel sounds, soft. ABSENT: distended, guarding, mass, organolmegaly, rebound, tenderness Extremities exam: PRESENT: full ROM Musculoskeletal exam: PRESENT: full ROM. Out of bed in chair. deformity due to multiple joints involvement with arthritis. ABSENT: dislocation, normal inspection, tenderness, other Neurological exam: PRESENT: alert, awake, oriented to person, oriented to place , oriented to time, oriented to situation, CN II-XII grossly intact. ABSENT: motor sensory deficit Psychiatric exam: PRESENT: depressed Skin exam: PRESENT: dry, intact, warm. ABSENT: cyanosis, rash Results Laboratory Results: 06/13/16 09:55 06/13/16 09:55 06/10/16 23:34 Blood Blood Culture - Final NO GROWTH IN 5 DAYS 06/10/16 19:00 Blood Blood Culture - Final NO GROWTH IN 5 DAYS Impressions: Chest X-Ray 06/10/16 00:00 IMPRESSION: Small left lower lobar atelectasis/pneumonia. Assessment & Plan - Diagnosis (1) Probable sepsis Is this a current diagnosis for this admission?: YesPlan: D/C IV Cefepime. Maintain on oral Levofloxacin coverage. (2) Parkinson disease Is this a current diagnosis for this admission?: Yes (3) Chronic atrial fibrillation Is this a current diagnosis for this admission?: Yes (4) COPD (chronic obstructive pulmonary disease) Is this a current diagnosis for this admission?: Yes (5) Parkinson's disease dementia Qualifiers: Dementia behavioral disturbance: without behavioral disturbance Qualified Code(s): G20 - Parkinson's disease; F02.81 - Dementia in other diseases classified elsewhere with behavioral disturbance Is this a current diagnosis for this admission?: Yes (6) Hypothyroidism (acquired) Is this a current diagnosis for this admission?: Yes (7) Type 2 diabetes mellitus with hyperglycemia Is this a current diagnosis for this admission?: YesPlan: See attending physician orders (9) GERD (gastroesophageal reflux disease) Qualifiers: Esophagitis presence: esophagitis presence not specified Qualified Code(s): K21.9 - Gastro-esophageal reflux disease without esophagitis Is this a current diagnosis for this admission?: Yes (10) Left lower lobe pneumonia Is this a current diagnosis for this admission?: YesPlan: D/C IV Cefepime. Maintain on oral Levofloxacin coverage. Encouraged usage of Flutter device and bedside incentive spirometer. (11) Hypokalemia Is this a current diagnosis for this admission?: YesPlan: Resolved. Continue on all current medication management. Obtain BMP. (12) Acute kidney injury Is this a current diagnosis for this admission?: YesPlan: Resolved. Continue gentle IV hydration with appropriate electrolyte replacement. Obtain BMP (13) HTN (hypertension) Qualifiers: Hypertension type: essential hypertension Qualified Code(s): I10 - Essential (primary) hypertension Is this a current diagnosis for this admission?: YesPlan: Maintain on current medication management. - Time Time Spent with patient: 25-34 minutes Medications reviewed and adjusted accordingly: Yes Anticipated discharge: Home with Homehealth Within: within 48 hours - Inpatient Certification Medical Necessity: Need Close Monitoring Due to Risk of Patient Decompensation, Need For Continuous Telemetry Monitoring, Risk of Complication if Not Cared For in Hospital Post Hospital Care: D/C Pricing Coordinator Documentation - Plan Summary Plan Summary: see attending physician orders.
[2016-06-16] MEDS: CEFEPIME HCL 2 GM in DEXTROSE 5%-WATER 50 ML IV SCH ×2 (14:20→23:20)
[2016-06-16] MEDS: LEVOFLOXACIN 250 MG TABLET PO SCH (21:23)
[2016-06-16] MEDS: TOPIRAMATE 100 MG TABLET PO SCH (21:23)
[2016-06-17] MEDS: GABAPENTIN 300 MG CAPSULE PO SCH ×2 (06:07→13:35)
[2016-06-17] MEDS: BENZONATATE 100 MG CAPSULE PO SCH ×2 (06:07→13:35)
[2016-06-17] MEDS: METOPROLOL TARTRATE 25 MG TABLET PO SCH (10:21)
[2016-06-17] MEDS: RAMIPRIL 5 MG CAPSULE PO SCH (10:23)
[2016-06-17] MEDS: CARBIDOPA/LEVODOPA 25-100 MG TABLET PO SCH (10:23)
[2016-06-17] MEDS: LORATADINE 10 MG TABLET PO SCH (10:23)
[2016-06-17] MEDS: LEVOTHYROXINE SODIUM 0.075 MG TABLET PO SCH (10:23)
[2016-06-17] MEDS: LAMOTRIGINE 100 MG TABLET PO SCH (10:23)
[2016-06-17] MEDS: LANSOPRAZOLE 30 MG TAB.RAP.DR PO SCH (10:23)
[2016-06-17] MEDS: ENOXAPARIN SODIUM INJ 40 MG/0.4 ML DISP.SYRIN SUBCUT SCH (10:24)
[2016-06-17] MEDS: ASPIRIN 81 MG TABLET, CHEWABLE PO SCH (10:24)
[2016-06-17 12:06] VITALS: BP 130/76
[2016-06-17] MEDS: CEFEPIME HCL 2 GM in DEXTROSE 5%-WATER 50 ML IV SCH (12:19)
--- NOTE | 2016-06-17 12:39 | PDOC DISCHARGE SUMMARY ---
General - Admit/Disc Date/PCP Admission Date/Primary Care Provider: 06/10/16 17:22 PREETI ONELIA Discharge Date: 06/17/16 - Discharge Diagnosis (1) Probable sepsis Is this a current diagnosis for this admission?: Yes (2) Parkinson disease Is this a current diagnosis for this admission?: Yes (3) Chronic atrial fibrillation Is this a current diagnosis for this admission?: Yes (4) COPD (chronic obstructive pulmonary disease) Is this a current diagnosis for this admission?: Yes (5) Parkinson's disease dementia Is this a current diagnosis for this admission?: Yes (6) Hypothyroidism (acquired) Is this a current diagnosis for this admission?: Yes (7) Type 2 diabetes mellitus with hyperglycemia Is this a current diagnosis for this admission?: Yes (9) GERD (gastroesophageal reflux disease) Is this a current diagnosis for this admission?: Yes (10) Left lower lobe pneumonia Is this a current diagnosis for this admission?: Yes (11) Hypokalemia Is this a current diagnosis for this admission?: Yes (12) Acute kidney injury Is this a current diagnosis for this admission?: Yes (13) HTN (hypertension) Is this a current diagnosis for this admission?: Yes - Additional Information Resuscitation Status: Full Code Discharge Diet: Cardiac, Diabetic Discharge Activity: Balance Activity w/Rest Home Medications: Carbidopa/Levodopa [Sinemet 25-100 mg Tablet] 1 each PO Q12 06/10/16 Gabapentin [Neurontin] 800 mg PO Q6 06/10/16 Glimepiride 0.5 mg PO DAILY 06/10/16 Hydrocodone/Acetaminophen [[place] 10-325 mg Tablet] 1 tab PO QID 06/10/16 Lamotrigine [Lamictal] 100 mg PO Q12 06/10/16 Levothyroxine Sodium [Synthroid 0.075 mg Tablet] 0.075 mg PO DAILY 06/10/16 Loratadine [Claritin 10 mg Tablet] 10 mg PO DAILY 06/10/16 Metoprolol Tartrate [Lopressor 25 mg Tablet] 12.5 mg PO Q12 06/10/16 Nitroglycerin [Nitrostat] 0.4 mg SL Q5MP PRN 06/10/16 Topiramate [Topamax] 50 mg PO QHS 06/12/16 Albuterol Sulfate [Proair HFA] 1 puff IH Q4HP PRN #1 hfa.aer.ad 06/17/16 Apixaban [Eliquis 2.5 mg Tablet] 2.5 mg PO BID #60 tablet 06/17/16 Benzonatate [Tessalon Perles 100 mg Capsule] 100 mg PO Q8 #60 capsule 06/17/16 Levofloxacin [Levaquin 250 mg Tablet] 250 mg PO QHS #5 tablet 06/17/16 Ramipril [Altace 5 mg Capsule] 5 mg PO DAILY #30 capsule 06/17/16 History of Present Illness Patient complains of: Worsening cough and fatigue History of Present Illness: SANCHO GARDUNO is a 81 year old female who presented to my office earlier today with reported worsening fatigue, coughing and more confused in the last couple of days. Caregiver reported episode of fall at home. There is reported productive cough, with description of sputum as green yellow, fever and chills. There is associated shortness of breath, wheezing, urinary frequency and incontinence. There is associated poor appetite and oral intake. No significant abdominal pain or diarrhea. Caregiver reported recent change in patient's pain management medication by specialist from Morphine sulfate to [place]. Patient's vitals in the office was reported temperature at 103.1F oxygen saturation was between 85 and 91% on room air at rest. Hospital Course Hospital Course: She responded to IV antibiotic therapy, anti-tussive, and hydration. Her chest X ray did suggest small left lower lobe atelectasis or early airspace disease process. In view of her demonstrable atrial fibrillation and variability in heart rate, I will discontinue Aspirin usage and start patient on Eliquis 2.5 mg po bid. Her blood pressure was a concern during this hospitalization ad she had Ramipril 5 mg po daily added to her regimen. Patient was encouraged to continue use of flutter and incentive spirometer at home. She will be discharge home with home health agency services including visiting nurse, physical therapy and paramedical aide by [facility]. She will follow up in the office as instructed upon discharge. Physical Exam Vital Signs: Temp Pulse Resp BP Pulse Ox 98.5 F 112 H 16 130/76 H 100 06/17/16 12:00 06/17/16 12:00 06/17/16 12:00 06/17/16 12:00 06/17/16 12:00 Intake & Output 06/16/16 06/17/16 06/18/16 06:59 06:59 06:59 Intake Total 4447 3610 Balance 4447 3610 Weight 67.1 kg 67.1 kg Physical Exam: General appearance: PRESENT: no acute distress, well-developed, well-nourished Head exam: PRESENT: atraumatic, normocephalic Eye exam: PRESENT: conjunctiva pink, EOMI, PERRLA. ABSENT: scleral icterus Throat exam: ABSENT: post pharyngeal erythema, tonsillar erythema, tonsillar exudate, tonsillogmegaly, other Neck exam: PRESENT: full ROM. ABSENT: carotid bruit, JVD, lymphadenopathy, thyromegaly Respiratory exam: PRESENT: minimal crackles - lung bases, decreased breath sounds - bilaterally at lung bases Cardiovascular exam: PRESENT: Irregular. ABSENT: diastolic murmur, rubs, systolic murmur GI/Abdominal exam: PRESENT: normal bowel sounds, soft. ABSENT: distended, guarding, mass, organolmegaly, rebound, tenderness Extremities exam: PRESENT: full ROM Musculoskeletal exam: PRESENT: full ROM. Out of bed in chair. deformity due to multiple joints involvement with arthritis. ABSENT: dislocation, normal inspection, tenderness, other Neurological exam: PRESENT: alert, awake, oriented to person, oriented to place , oriented to time, oriented to situation, CN II-XII grossly intact. ABSENT: motor sensory deficit Psychiatric exam: PRESENT: depressed Skin exam: PRESENT: dry, intact, warm. ABSENT: cyanosis, rash Results Laboratory Results: 06/13/16 09:55 06/13/16 09:55 Impressions: Chest X-Ray 06/10/16 00:00 IMPRESSION: Small left lower lobar atelectasis/pneumonia. Qualifiers PATEINT BEING DISCHARGED WITH ANY OF THE FOLLOWING DIAGNOSIS?: No Plan Discharge Plan: Discharge home today with [facility] services. Follow up in office as instructed upon discharge. Time Spent: Less than 30 Minutes
== END 2016-06-17 16:18 | disposition home health service (06) | DRG 871 ==
LOC: 3W 17:22 → 5 06-12 23:28
PROVIDERS: ADMIT Internal Medicine Geriatric Medicine; ATTEND Internal Medicine Geriatric Medicine
DX: A41.9 Sepsis, unspecified organism (principal); J18.1 Lobar pneumonia, unspecified organism; F02.81 Dementia in other diseases classified elsewhere, unspecified severity, with behavioral disturbance; N17.9 Acute kidney failure, unspecified; I48.2 Chronic atrial fibrillation; J44.9 Chronic obstructive pulmonary disease, unspecified; G20 Parkinson's disease; E03.9 Hypothyroidism, unspecified; E11.65 Type 2 diabetes mellitus with hyperglycemia; K21.9 Gastro-esophageal reflux disease without esophagitis; E87.6 Hypokalemia; I10 Essential (primary) hypertension; Z96.643 Presence of artificial hip joint, bilateral; Z90.49 Acquired absence of other specified parts of digestive tract; Z90.710 Acquired absence of both cervix and uterus; Z79.899 Other long term (current) drug therapy; Z88.6 Allergy status to analgesic agent; Z88.8 Allergy status to other drugs, medicaments and biological substances
CPT/HCPCS: 36415; 71020; 80048; 80053; 81001; 82962; 83735; 85025; 85027; 87040; 94667; 94668; 94799; G8978-GP; G8979-GP; J0692; J1650; J1956; J3480; J3490; J7030

== ENCOUNTER 2016-06-30 16:52 | Emergency (ER) | payer MEDICARE ==
[2016-06-30] MEDS ORDERED: CLONIDINE HCL 0.2 MG TABLET PO ONE (17:48)
--- NOTE | 2016-06-30 17:48 | ER Document Report ---
[id number] Mode of Arrival: Medic Information source: Patient, Relative Notes: 81-year-old female who is on xarelto presents after a mechanical fall striking her head and in her left hip. Patient denies any loss consciousness admits to mild headache. Denies any neurological deficits. Patient was able to ambulate TRAVEL OUTSIDE OF THE [place] IN LAST 30 DAYS: No - HPI Onset: Just prior to arrival Onset/Duration: Sudden Quality of pain: Achy Severity: Mild Pain Level: 1 Associated symptoms: Headache, Other Exacerbated by: Denies Relieved by: Denies Similar symptoms previously: No Recently seen / treated by doctor: No - Related Data Allergies/Adverse Reactions: codeine Allergy (Verified 04/14/16 20:11) digoxin Allergy (Verified 04/14/16 20:11) metaxalone [From Skelaxin] Allergy (Verified 04/14/16 20:11) metoclopramide [From Reglan] Allergy (Verified 04/14/16 20:11) Past Medical History - Social History Smoking Status: Never Smoker Cigarette use (# per day): No Chew tobacco use (# tins/day): No Smoking Education Provided: No Family History: Reviewed & Not Pertinent Patient has suicidal ideation: No Patient has homicidal ideation: No - Past Medical History Cardiac Medical History: Reports: Hx Atrial Fibrillation, Hx Hypertension Pulmonary Medical History: Reports: Hx COPD, Hx Pneumonia, Hx Tuberculosis Neurological Medical History: Reports: Hx Cerebrovascular Accident - TIAs Endocrine Medical History: Reports: Hx Diabetes Mellitus Type 2 Renal/ Medical History: Denies: Hx Peritoneal Dialysis Psychiatric Medical History: Reports: Hx Dementia - From Parkinson's Denies: Hx Depression Past Surgical History: Reports: Hx Section, Hx Cholecystectomy, Hx Hysterectomy, Hx Kidney (Renal Surgery) - left, Hx Orthopedic Surgery - Bilateral hip replacements, Hx Tonsillectomy - Immunizations Hx Diphtheria, Pertussis, Tetanus Vaccination: Yes Hx Pneumococcal Vaccination: 03/05/16 Review of Systems - Review of Systems Notes: PHYSICAL EXAMINATION: GENERAL: Well-appearing, well-nourished and in no acute distress. HEAD: Superficial abrasion left nasal bridge EYES: Pupils equal round and reactive to light, extraocular movements intact, conjunctiva are normal. ENT: Nares patent, oropharynx clear without exudates. Moist mucous membranes. NECK: Normal range of motion, supple without lymphadenopathy LUNGS: Breath sounds clear to auscultation bilaterally and equal. No wheezes rales or rhonchi. HEART: Regular rate and rhythm without murmurs ABDOMEN: Soft, nontender, nondistended abdomen. No guarding, no rebound. No masses appreciated. Female : deferred Musculoskeletal: Normal range of motion, no pitting or edema. No cyanosis. NEUROLOGICAL: Cranial nerves grossly intact. Normal speech, normal gait. Normal sensory, motor exams PSYCH: Normal mood, normal affect. 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 Also, there is no evidence or peritonitis, sepsis, or toxicity. The patient and I have discussed the diagnosis and risks, and we agree with discharging home to follow-up with their primary doctor with the understanding that symptoms and presentations can change. We also discussed returning to the Emergency Department immediately if new or worsening symptoms occur. We have discussed the symptoms which are most concerning (e.g., bloody stool, fever, changing or worsening pain, vomiting) that necessitate immediate return. - Vital Signs Vital signs: Temp Pulse Resp BP Pulse Ox 98.0 F 60 16 170/64 H 100 06/30/16 17:12 06/30/16 18:31 06/30/16 17:12 06/30/16 18:31 06/30/16 17:12 - Diagnostic Test Radiology reviewed: Image reviewed, Reports reviewed Discharge - Discharge Clinical Impression: Hematoma Fall Qualifiers: Encounter type: initial encounter Qualified Code(s): W19.XXXA - Unspecified fall, initial encounter Head injuries Qualifiers: Encounter type: initial encounter Qualified Code(s): S09.90XA - Unspecified injury of head, initial encounter Hip pain Qualifiers: Laterality: left Qualified Code(s): M25.552 - Pain in left hip Condition: Stable Disposition: HOME, SELF-CARE Additional Instructions: Contusion Your injury has resulted in a contusion -- a crushing of the deep tissues. No injury to important structures was detected during the physician's exam. Contusions vary in the amount of pain they cause, and in the length of time required for healing. Typically, the area will become bruised, and will remain painful to touch for two or three weeks. However, most patients are back to working and playing within a few days. After the initial period of rest and cold-packs, your symptoms (together with the doctor's recommendations) will determine how rapidly you can get back to full activity. Usually this means "do what feels okay, but don't do things that hurt." If re-examination was recommended, it's important to follow up as instructed. Call the doctor or return any time if pain increases, if swelling becomes severe, if you develop numbness or weakness in an injured extremity, or if any other alarming symptoms occur. Follow up with your physician tomorrow for further care or return to the ED IMMEDIATELY if symptoms worsen or new concerns occur Referrals: PREETI ROUSSEAU MD [Primary Care Provider] - Follow up as needed
[2016-06-30 18:31] VITALS: BP 170/64
== END 2016-06-30 18:31 | disposition home or self-care (01) ==
LOC: ER 16:52
DX: S70.02XA Contusion of left hip, initial encounter (principal); S00.31XA Abrasion of nose, initial encounter; R51 Headache; M25.552 Pain in left hip; W01.0XXA Fall on same level from slipping, tripping and stumbling without subsequent striking against object, initial encounter; Y92.009 Unspecified place in unspecified non-institutional (private) residence as the place of occurrence of the external cause; I10 Essential (primary) hypertension; I48.91 Unspecified atrial fibrillation; Z79.01 Long term (current) use of anticoagulants; Z88.5 Allergy status to narcotic agent; Z88.8 Allergy status to other drugs, medicaments and biological substances; J44.9 Chronic obstructive pulmonary disease, unspecified; Z86.73 Personal history of transient ischemic attack (TIA), and cerebral infarction without residual deficits; E11.9 Type 2 diabetes mellitus without complications; Z96.643 Presence of artificial hip joint, bilateral
CPT/HCPCS: 99284; 73502; 70450; 72125; A9270

== ENCOUNTER 2016-07-09 12:08 | Emergency (ER) | payer MEDICARE ==
[2016-07-09 12:13] VITALS: BP 131/41
--- NOTE | 2016-07-09 12:38 | ER Document Report ---
ED Medical Screen (RME) - General Stated Complaint: LEFT HIP PAIN Time seen by provider: 12:38 Mode of Arrival: Wheelchair Information source: Patient Notes: 81-year-old female fell 2 weeks ago and was seen in the emergency department on July 01. The left hip x-ray was negative. The hematoma over the great trochanter is getting larger. She takes an anticoagulant. She is unable to bear weight on her left leg without a walker. I have greeted and performed a rapid initial assessment of this patient. A comprehensive ED assessment, evaluation of the patient, analysis of test results , and completion of the medical decision making process will be conducted by additional ED providers. TRAVEL OUTSIDE OF THE [place] IN LAST 30 DAYS: No - Related Data Allergies/Adverse Reactions: codeine Allergy (Verified 07/09/16 12:36) digoxin Allergy (Verified 07/09/16 12:36) metaxalone [From Skelaxin] Allergy (Verified 07/09/16 12:36) metoclopramide [From Reglan] Allergy (Verified 07/09/16 12:36) Past Medical History - Past Medical History Cardiac Medical History: Reports: Hx Atrial Fibrillation, Hx Hypertension Pulmonary Medical History: Reports: Hx COPD, Hx Pneumonia, Hx Tuberculosis Neurological Medical History: Reports: Hx Cerebrovascular Accident - TIAs Endocrine Medical History: Reports: Hx Diabetes Mellitus Type 2 Renal/ Medical History: Denies: Hx Peritoneal Dialysis Psychiatric Medical History: Reports: Hx Dementia - From Parkinson's Denies: Hx Depression Past Surgical History: Reports: Hx Section, Hx Cholecystectomy, Hx Hysterectomy, Hx Kidney (Renal Surgery) - left, Hx Orthopedic Surgery - Bilateral hip replacements, Hx Tonsillectomy - Immunizations Hx Diphtheria, Pertussis, Tetanus Vaccination: Yes Physical Exam - Vital signs Vitals: Temp Pulse Resp BP Pulse Ox 98.0 F 55 L 16 131/41 H 96 07/09/16 12:12 07/09/16 12:12 07/09/16 12:12 07/09/16 12:12 07/09/16 12:12 Course - Vital Signs Vital signs: Temp Pulse Resp BP Pulse Ox 98.0 F 55 L 16 131/41 H 96 07/09/16 12:12 07/09/16 12:12 07/09/16 12:12 07/09/16 12:12 07/09/16 12:12
[2016-07-09 13:15] LABS: ABSOLUTE EOSINOPHILS # (AUTO) 0.1 10^3/uL (0.0-0.6); ABSOLUTE LYMPHOCYTES (AUTO) 1.6 10^3/uL (0.5-4.7); ABSOLUTE MONOCYTES (AUTO) 1.1 10^3/uL (0.1-1.4); ABSOLUTE NEUT (AUTO) 12.7 10^3/uL (1.7-8.2); BASOPHILS % (AUTO) 0.3 % (0-2); EOSINOPHILS % (AUTO) 0.5 % (0-6); HEMATOCRIT 35.2 % (36.0-47.0); HEMOGLOBIN 11.2 g/dL (12.0-15.5); HGB HCT DIFFERENCE -1.6; LYMPHOCYTES % (AUTO) 10.5 % (13-45); MEAN CORPUSCULAR HEMOGLOBIN 28.5 pg (27.0-33.4); MEAN CORPUSCULAR HGB CONC 31.7 g/dL (32.0-36.0); MEAN CORPUSCULAR VOLUME 90 fl (80-97); MONOCYTES % (AUTO) 7.2 % (3-13); RED BLOOD COUNT 3.93 10^6/uL (3.72-5.28); RED CELL DISTRIBUTION WIDTH 14.4 % (11.5-14.0); SEGMENTED NEUTROPHILS % (AUTO) 81.5 % (42-78); WHITE BLOOD COUNT 15.6 10^3/uL (4.0-10.5)
[2016-07-09 13:17] LABS: PROTHROMBIN TIME 14.4 SEC (11.4-15.4)
[2016-07-09 13:18] LABS: PARTIAL THROMBOPLASTIN TIME 29.6 SEC (23.5-35.8)
[2016-07-09 13:34] LABS: ALANINE AMINOTRANSFERASE 14 U/L (9-52); ALBUMIN 3.5 g/dL (3.5-5.0); ALKALINE PHOSPHATASE 155 U/L (38-126); ANION GAP 11 (5-19); ASPARTATE AMINO TRANSFERASE 15 U/L (14-36); BILIRUBIN,TOTAL 0.4 mg/dL (0.2-1.3); BLOOD UREA NITROGEN 28 mg/dL (7-20); CALCIUM 9.2 mg/dL (8.4-10.2); CARBON DIOXIDE 25 mmol/L (22-30); CHLORIDE 109 mmol/L (98-107); GLUCOSE 98 mg/dL (75-110); POTASSIUM 4.3 mmol/L (3.6-5.0); SODIUM 144.7 mmol/L (137-145); TOTAL PROTEIN 5.6 g/dL (6.3-8.2)
== END 2016-07-09 14:40 | disposition left against medical advice (07) ==
LOC: ER 12:08
DX: S70.00XA Contusion of unspecified hip, initial encounter (principal); W19.XXXA Unspecified fall, initial encounter; M25.552 Pain in left hip; E11.9 Type 2 diabetes mellitus without complications; I10 Essential (primary) hypertension; Z53.20 Procedure and treatment not carried out because of patient's decision for unspecified reasons; Z79.01 Long term (current) use of anticoagulants; J44.9 Chronic obstructive pulmonary disease, unspecified; Z86.73 Personal history of transient ischemic attack (TIA), and cerebral infarction without residual deficits; Z96.643 Presence of artificial hip joint, bilateral
CPT/HCPCS: 36415; 80053; 85025; 85610; 85730; 99281